=== PATIENT | male | born 1960 | race Caucasian/White ===

== ENCOUNTER 2023-08-11 11:35 | Emergency (ER) | payer BC, OTHER ==
[2023-08-11] MEDS ORDERED: Lidocaine 1% 10 ML MDV INJECT ONE (12:13)
[2023-08-11] MEDS ORDERED: Diphtheria,Pertussis(Acell),Tetanus Vaccine 0.5 ML Syringe IM ONE (12:19)
[2023-08-11 14:13] VITALS: BP 126/75; PULSE 78
== END 2023-08-11 14:13 | disposition home or self-care (01) ==
LOC: JD.ED 11:35
DX: S61.012A Laceration without foreign body of left thumb without damage to nail, initial encounter (principal); Z23 Encounter for immunization; W26.9XXA Contact with unspecified sharp object(s), initial encounter
CPT/HCPCS: 11740; 12001; 90471; 90715; 99282-25; 99283; J3490